=== PATIENT | female | born 1980 | race Caucasian/White ===

== ENCOUNTER → 2017-01-11 | Outpatient (CLI) | payer OTHER ==
[2017-01-11 13:35] LABS: Follicle Stimulating Hormone 3.3 mIU/mL; Prolactin 9.8 ng/mL (3.0-18.6)
== END | disposition home or self-care (01) ==
LOC: LABWHC1 11:16
PROVIDERS: ATTEND Internal Medicine Endocrinology, Diabetes & Metabolism
DX: N64.3 Galactorrhea not associated with childbirth (principal)
CPT/HCPCS: 36415; 82024; 82533; 83001; 83002; 84146; 84439; 84443